=== PATIENT | female | born 1950 | race Caucasian/White ===

== ENCOUNTER 2025-07-15 09:21 | Outpatient (AMB) | payer MEDICARE, SELFPAY ==
--- NOTE | 2025-07-15 09:27 | AM.OFFWIN_ITS ---
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 Reports she first noticed a small/medium size lump/mass right chest for over a year. She thought it was just Ganglion cyst and hoped it would go away on its own. Reports that it got infected apporximately 3 days ago. Denies any drainage, mild tenderness and redness. Denies fevers, chills, nausea or vomiting. [facility] Medical History (Updated 07/15/25 @ 10:02 by Terri Bender NP) Abscess of skin and subcutaneous tissue Social History Patient Tobacco Use Status: Current everyday Tobacco user Patient : No Review of Systems Const All systems reviewed & are unremarkable except as noted in HPI and below Physical Exam Vital Signs: Last Vital Signs Temp 98.8 F 07/15/25 09:28 Pulse 100 07/15/25 09:28 BP 112/50 L 07/15/25 09:28 Pulse Ox 95 07/15/25 09:28 Oxygen Delivery Method Room Air 07/15/25 09:28 BMI result Body Mass Index 31.7 Const General: comfortable and no acute distress Nutritional Appearance: overweight Orientation/consciousness: patient oriented x3 Chest Chest/axillae images: 2 1. Medium size erythematous abscess, indurated, warm and TTP. Resp Effort & Inspection: normal respiratory effort Auscultation: clear to auscultation bilaterally Cardio Heart sounds: S1 normal heart sound present and S2 normal heart sound present Skin Other: right upper chest wall Medium size erythematous abscess, indurated, warm and TTP. Neuro General: patient oriented x3 Psych Speech and movement: Normal speech and movement present Assessment & Plan Assessment & Plan (1) Abscess of skin and subcutaneous tissue: Code(s): L02.91 - Cutaneous abscess, unspecified Qualifiers: Site of cutaneous abscess of trunk: chest wall Site of cutaneous abscess: trunk Qualified Code(s): L02.213 - Cutaneous abscess of chest wall Plan: Advised to F/U with PCP for possible referral to General Surgery for I&D of Abscess. Ordered Doxy for 10 days. Warm compress NSAIDs for pain relief. Medications: New 2 doxycycline hyclate 100 mg PO BID 20 caps 0RF 10 days L02.91 - Cutaneous abscess, unspecified Coding Level of Care Code New Pt Level 4 (32690) Diagnoses Cutaneous abscess of chest wall L02.213 Site of cutaneous abscess of trunk: chest wall Site of cutaneous abscess: trunk Time Spent (min) 20
[2025-07-15 09:28] VITALS: BP 112/50; PULSE 100; TEMP 37.1; O2SAT 95; BMI 31.7
--- OUTSIDE RECORDS SUMMARY | 2025-07-15 09:54 | XMS_ITS | Clinical Summary ---
Author Organization [employer] Address [address] [place] [address] [address] [place] [address] Care Team Providers Care Compensation Administrator Name Role Phone Unavailable Primary Care Provider Unavailabl e Immunizations Immunization Administration Dates Next Due Influenza, seasonal, injectable, preservative fr ee 08/24/2024 Pfizer Covid-19 Vaccine 12+ 08/24/2024 Social History Tobacco Use Types Packs/Day Years Used Date Smoking Tobacco: Never Assessed Comments Unknown Sex and Gender Information Value Date Recorded Sex Assigned at Female 10/01/2022 10:39 AM EDT Legal Sex Female 10:39 AM EDT Gender Identity Female 10/01/2022 10:39 AM EDT Sexual Orientation Straight 10/01/2022 10 :39 AM EDT Plan of Treatment Health Maintenance Due Date Last Done Comments Depression Screening 1948 Lipid Panel 1948 SDOH Screening 1948 Alcohol/Substance Use Screening 1960 Tobacco Screening 1960 Hepatitis C Screening 1966 DTaP/Tdap/Td Vaccines (1 - Tdap) 1967 Pneumococcal Vaccine: 50+ Years (1 of 1 - PCV) 1998 Zoster Vaccines (1 of 2) 1998 RSV Patients and Patients Aged 60 years or older (1 - 1-dose 75+ series) 2023 COVID-19 Vaccine ( season) 2025 08/24/2024, 11/20/2022, 11/02/2021, Additional history exists Influenza Vaccine (#1) 2025 , 09/17/2023, 09/20/2022, Additional history exists HIB Vaccines Aged Out No longer eligi ble based on patient's age to complete this topic HPV Vaccines Aged Out No longer eligi ble based on patient's age to complete this topic Hepatitis A Vaccines Aged Out No long er eligible based on patient's age to complete this topic Hepatitis B Vaccines Aged Out No long er eligible based on patient's age to complete this topic IPV Vaccines Aged Out No longer eligi ble based on patient's age to complete this topic Meningococcal B Vaccine Aged Out No l onger eligible based on patient's age to complete this topic Meningococcal Vaccine Aged Out No kimmy jeyson eligible based on patient's age to complete this topic RSV under 20 months Aged Out No longe r eligible based on patient's age to complete this topic Rotavirus Vaccines Aged Out No longer eligible based on patient's age to complete this topic Insurance [facility] MED CARE [place] [address] [place] [id number] [place] [id number]
== END 2025-07-15 09:48 | disposition home or self-care (01) ==
PROVIDERS: Visit Provider Nurse Practitioner Family
DX: L02.213 Cutaneous abscess of chest wall (principal)

== ENCOUNTER → 2025-07-15 09:21 | Outpatient (BNVA) | payer MEDICARE, SELFPAY | PROVIDERS: Visit Provider Nurse Practitioner Family | DX: L02.213 Cutaneous abscess of chest wall (principal) | CPT/HCPCS: 99202 ==